=== PATIENT | female | born 1995 | race Caucasian/White ===

== ENCOUNTER 2019-04-04 16:37 | Inpatient (IN) | payer BC ==
[~2019-04-04 16:37] MED LIST: ISOVUE-370 76%-LOCM 1 ML ONE
[2019-04-04 17:22] LABS: #Eosinphils 0.1 thou/uL (0.0-0.7); #Lymphocytes 2.2 thou/uL (1.20-3.40); #Monocytes 0.9 thou/uL (0.11-0.59); #Neutrophils 8.3 thou/uL (1.40-6.50); %Basophils 0.3 % (0.0-1.0); %Eosinophils 0.6 % (0.0-10.0); %Lymphocytes 19.3 % (21.0-51.0); %Monocytes 7.8 % (0.0-10.0); Hemoglobin 14.7 g/dL (12.0-16.0); Mean Corpuscular HGB CONC 32.8 g/dL (32.0-36.0); Mean Corpuscular Hemoglobin 29.1 pg (27.0-31.0); Mean Corpuscular Volume 88.7 fL (78.0-98.0); Mean Platelet Volume 9.7 fL (7.4-10.4); Platelet Count 274 thou/uL (130-400); RBC Distribution Width 12.5 % (11.5-14.5); Red Blood Cell (RBC) Count 5.05 mill/uL (4.20-5.40); White Blood Cell (WBC) Count 11.5 thou/uL (4.8-10.8)
[2019-04-04] MEDS ORDERED: Ondansetron PF 4 MG/2 ML Vial ONE (17:30)
[2019-04-04] MEDS ORDERED: Metoclopramide HCl 10 MG/2 ML VIAL ONE (17:38)
[2019-04-04 17:40] LABS: BHCG - Serum Negative (NEGATIVE); Pregs Control Background? CLEAR/WHITE (CLR/WHITE); Pregs Control Bar Appear? YES (CONTROL BAR)
[2019-04-04 17:51] LABS: ALT (SGPT) 32 U/L (8-55); AST (SGOT) 22 U/L (5-34); Albumin 4.6 g/dL (3.5-5.0); Alkaline Phosphatase 66 U/L (40-150); Anion Gap 16 mmol/L (10-20); BUN (Urea Nitrogen) 9 mg/dL (7.0-18.7); Bilirubin, Total 0.6 mg/dL (0.2-1.2); Calc. Creatinine Clearance 0 mL/min (70-130); Calcium 10.3 mg/dL (7.8-10.44); Carbon Dioxide 26 mmol/L (22-29); Chloride 102 mmol/L (98-107); Estimated GFR-MDRD Greater than 90; Globulin 3.3 g/dL (2.4-3.5); Glucose 91 mg/dL (70-105); Lipase 7 U/L (8-78); Potassium 3.2 mmol/L (3.5-5.1); Protein, Total 7.9 g/dL (6.0-8.3); Sodium 141 mmol/L (136-145)
[2019-04-04] MEDS ORDERED: methylPREDNISolone Sod Succ 40 MG VIAL ONE ×2 (17:55→17:56)
[2019-04-04] MEDS ORDERED: Morphine 4 MG/ML VIAL ONE (18:44)
[2019-04-04 18:52] LABS: Troponin I Less than 0.010 ng/mL (< 0.028)
[2019-04-04] MEDS ORDERED: Potassium Chloride 40 MEQ in Sodium Chloride 0.9% 250 ML 250 ML IVPB SCH (19:00)
--- NOTE | 2019-04-04 19:04 | CT ---
CT ABDOMEN AND PELVIS WITH IV CONTRAST: 04/04/2019 PROVIDED CLINICAL HISTORY: Abdominal pain and nausea. FINDINGS: The visualized lung bases are free of significant opacity. The solid abdominal organs demonstrate a normal CT appearance. Changes of prior cholecystectomy are seen. No bowel dilatation, inflammatory fat stranding, free fluid, or free air apparent. The osseous structures demonstrate no concerning lytic or blastic lesions. The appendix appears normal. IMPRESSION: No evidence for an acute process. POS: BRITTNEY
[2019-04-04 21:02] VITALS: BMI 46.7
[2019-04-04] MEDS ORDERED: Ondansetron ODT 4 MG TAB SL PRN (21:21)
[2019-04-04] MEDS ORDERED: Ondansetron PF 4 MG/2 ML Vial IVP PRN (21:21)
[2019-04-04] MEDS ORDERED: Lactated Ringer's 1,000 ML IV SCH (21:30)
[2019-04-04] MEDS ORDERED: hydrALAZINE 20 MG/ML VIAL SLOW IVP PRN (22:22)
--- NOTE | 2019-04-04 22:38 | CON ---
DATE OF CONSULTATION: 04/04/2019 REASON FOR CONSULTATION: Abdominal pain, nausea and vomiting. HISTORY OF PRESENT ILLNESS: Mrs. Morales is a 24-year-old female who presents with a 5-day history of persistent epigastric pain and lower chest pain that has been increasing in severity, associated with nausea and vomiting. She has not been able to keep much fluid or foods down. The pain is described as sharp and stabbing without any radiation. She had a normal bowel movement two days ago. She denies any fever. She has had similar pain and symptoms in the past several years. I saw her in clinic one time back in October at which time her symptoms had resolved. However, by report, the patient has had recurrent abdominal issue, pain, reflux, nausea, vomiting for which she has had undergone numerous tests including EGDs, colonoscopy, CT and ultrasound in [facility] and [place]. In 2015, she had a laparoscopic cholecystectomy for suspected biliary dyskinesia. In 2016, she had an upper endoscopy in the [place] with gastric biopsy reportedly showed eosinophilic gastritis. She was only treated with PPI for her chronic reflux, which she had stopped since October. PAST MEDICAL HISTORY: 1. Status post cholecystectomy. 2. Numerous GI tests in outlying communities as above. 3. Chronic GE reflux. CURRENT MEDICATIONS: 1. Ibuprofen 200 mg up to four times a day for the last 3-4 days. 2. She was previously on pantoprazole, which she had discontinued over the last three months. ALLERGIES: BACTRIM. SOCIAL HISTORY: The patient is single. She is in clerical work. She does not smoke. Has no alcohol usage. FAMILY HISTORY: Negative for any known GI problem, liver disease or GI malignancy. REVIEW OF SYSTEMS: Ten-point review of system was otherwise negative except for what was aforementioned in the HPI. PHYSICAL EXAMINATION: VITAL SIGNS: Temperature is 98.2, blood pressure 128/72, pulse of 90. GENERAL: She is alert, sitting up in bed, appears to be very uncomfortable, but in no severe distress. HEENT: Shows anicteric sclerae. Oropharynx is clear, but moist. NECK: Supple. CV: Shows normal S1, S2. Regular rate and rhythm. CHEST: Shows breath sounds. ABDOMEN: Protuberant, but soft. No significant tenderness to deep palpation. She has no tympany. She has diffusely active bowel sounds. Organomegaly is difficult to assess secondary to size. EXTREMITIES: Shows no edema. LABORATORY DATA: WBCs 11.5, hemoglobin 14.7, platelet count 274. Electrolytes within normal range except potassium of 3.2, creatinine 0.74. Bilirubin 0.6, AST 22, ALT 32, alkaline phosphatase 66, lipase of 7. Serum test negative. CT of abdomen and pelvis with IV contrast was normal except for a prior cholecystectomy change. ASSESSMENT: 1. Recurrent episodic severe upper abdominal pain associated with nausea and vomiting. Her current episode has been ongoing for the last four days. Labs and CT imaging are unremarkable. Physical exam does not show any acute process. She does have a history of eosinophilic gastritis diagnosed in [place] on an upper endoscopy. However, her current symptoms are not typical for eosinophilic gastritis. 2. Chronic gastroesophageal reflux. 3. Status post cholecystectomy. RECOMMENDATION: 1. We will empirically start on corticosteroid, for now methylprednisolone 40 mg IV q.8h as she cannot keep medications down. 2. We will proceed with EGD tomorrow with repeat biopsy to ascertain her previous diagnosis of eosinophilic gastritis. 3. In the meantime, continue IV hydration, pain control and emetic control. Job ID: [id number]
[2019-04-04] MEDS: HYDROcodone/Acetaminophen 5/325 mg Tablet PO PRN (22:48)
[2019-04-04] MEDS: Metoclopramide HCl 10 MG TAB PO PRN (22:49)
--- NOTE | 2019-04-05 01:04 | HP ---
DATE AND TIME OF EVALUATION: 04/04/2019, 8 pm CHIEF COMPLAINT: Nausea, vomiting, and abdominal pain. HISTORY OF PRESENT ILLNESS: The patient is a 24-year-old female with past medical history significant for diagnosis of eosinophilic esophagitis, currently on no medication or treatment, GERD, and surgical history of cholecystectomy, who presented to the hospital with complaints of worsening abdominal pain and intractable nausea and vomiting, which began about a week ago. The patient states that her symptoms initially began as lower abdominal cramping which she thought was consistent with menstrual cramps. However, she had not started her menstrual cycle. A day later, she started to develop some nausea and vomiting along with some epigastric pain, which she describes as tightness with some radiation. She denies any fever or chills. The patient presented to outpatient GI clinic because of her persistent symptoms and inability to keep down anything orally, the patient was advised to go to the emergency department for admission and consideration for upper endoscopy. The patient has been followed by Dr. Osorio in the past, and he was consulted from the emergency department; he recommended a CT scan which showed no evidence for any acute process. He advised admission with initiation of IV steroids, and EGD tomorrow. The patient states that her symptoms initially began in 2016. She has seen numerous gastroenterology specialists and has had several endoscopies over the years. She was placed on Reglan by her PCP, which did help with her symptoms; however, she ran out of this medication. REVIEW OF SYSTEMS: A 12-point review of systems performed and is negative except as stated above. PAST MEDICAL HISTORY: GERD, eosinophilic esophagitis. PAST SURGICAL HISTORY: Several upper endoscopies, cholecystectomy, and tonsillectomy. SOCIAL HISTORY: The patient denies any alcohol use or drug use, the patient denies any smoking history. She lives in a [place] town of [place], which is located [place] to [place]. 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 FAMILY HISTORY: Positive for diabetes mellitus in her grandmother, positive for CAD in her mother. ALLERGIES: SULFAMETHOXAZOLE AND TRIMETHOPRIM. HOME MEDICATIONS: 1. Phenergan 25 mg tab 1 to 2 tablets p.o. q.6 hours p.r.n. 2. Hydroxyzine 25 mg p.o. t.i.d. p.r.n. anxiety. 3. Metoclopramide 10 mg tablet q.i.d. p.r.n. 4. Pantoprazole 40 mg p.o. daily. PHYSICAL EXAMINATION: VITAL SIGNS: Blood pressure 144/81, pulse is 72, temperature 98.7, O2 saturation is 98% on room air. GENERAL: The patient is a young female, who is moderately obese, resting comfortably in bed, in no acute distress. HEENT: Head is atraumatic and normocephalic. Mucous membranes are moist. NECK: Trachea is midline. No JVD. CV: S1 and S2. Regular rate and rhythm. No appreciable murmurs, rubs, or gallops. LUNGS: Regular respiratory rate and pattern. Clear to auscultation bilaterally. ABDOMEN: Positive bowel sounds. The patient has no tenderness to palpation. ABDOMEN: Obese. EXTREMITIES: No appreciable pitting edema. NEUROLOGIC: Cranial nerves II through XII are grossly intact. The patient is nonfocal. LABORATORY DATA: White blood cell count 11.5, hemoglobin 14.7, hematocrit 44.8, platelet count is 274. Sodium 141, potassium 3.2, carbon dioxide 26, anion gap 16, creatinine 0.74. AST, ALT, and alkaline phosphatase all within normal limits. Lipase negative. test is negative. ASSESSMENT: 1. Persistent nausea and vomiting along with abdominal pain in a patient with known history of eosinophilic esophagitis. 2. Elevated blood pressure reading without history of hypertension. 3. Obesity. 4. Mild hypokalemia. PLAN: Appreciate very much Dr. Osorio's recommendations. We will continue IV steroids, antiemetics, and pain control. Continue IV fluid resuscitation. We will replete the patient's potassium and recheck in the morning. The patient has had some elevated blood pressure readings here, and given her obesity, would like to rule out metabolic syndrome. I will get an A1c in the morning along with a lipid profile. The patient will be made n.p.o. after midnight in anticipation of upper endoscopy with Dr. Osorio tomorrow. Further recommendations based on findings. Job ID: [id number] [facility]
[2019-04-05] MEDS ORDERED: methylPREDNISolone Sod Succ 40 MG VIAL IVP SCH (02:00)
[2019-04-05 04:48] LABS: Hemoglobin A1c 4.9 % (4.0-6.0)
[2019-04-05 04:57] LABS: #Lymphocytes 0.9 thou/uL (1.20-3.40); #Monocytes 0.2 thou/uL (0.11-0.59); #Neutrophils 6.8 thou/uL (1.40-6.50); %Basophils 0.4 % (0.0-1.0); %Eosinophils 0.2 % (0.0-10.0); %Lymphocytes 10.8 % (21.0-51.0); %Monocytes 2.8 % (0.0-10.0); %Neutrophils 85.8 % (42.0-75.0); Hemoglobin 13.6 g/dL (12.0-16.0); Mean Corpuscular HGB CONC 33.7 g/dL (32.0-36.0); Mean Corpuscular Hemoglobin 30.9 pg (27.0-31.0); Mean Corpuscular Volume 91.8 fL (78.0-98.0); Mean Platelet Volume 9.9 fL (7.4-10.4); Platelet Count 224 thou/uL (130-400); RBC Distribution Width 12.4 % (11.5-14.5); Red Blood Cell (RBC) Count 4.41 mill/uL (4.20-5.40); White Blood Cell (WBC) Count 7.9 thou/uL (4.8-10.8)
[2019-04-05 05:04] LABS: Anion Gap 14 mmol/L (10-20); BUN (Urea Nitrogen) 6 mg/dL (7.0-18.7); Calc. Creatinine Clearance 321 mL/min (70-130); Calcium 9.4 mg/dL (7.8-10.44); Carbon Dioxide 21 mmol/L (22-29); Cardiac Risk 3.8 (Less than 4.5); Chloride 106 mmol/L (98-107); Cholesterol 125 mg/dl (< 200 Desired); Estimated GFR-MDRD Greater than 90; Glucose 103 mg/dL (70-105); HDL Cholesterol 33 mg/dL (>60 Neg Risk); LDL Cholesterol, Calculated 83 mg/dL; Potassium 4.3 mmol/L (3.5-5.1); Sodium 137 mmol/L (136-145); Triglycerides 47 mg/dL (Less than 150)
[2019-04-05] MEDS: HYDROcodone/Acetaminophen 5/325 mg Tablet PO PRN ×2 (08:16→20:56)
[2019-04-05] MEDS: Metoclopramide HCl 10 MG TAB PO PRN (08:17)
[2019-04-05] MEDS ORDERED: Morphine 2 MG/ML SYRINGE SLOW IVP PRN (09:06)
[2019-04-05] MEDS: Ondansetron PF 4 MG/2 ML Vial IVP PRN ×2 (09:39→20:56)
[2019-04-05] MEDS ORDERED: Fentanyl 100 MCG/2 ML VIAL SLOW IVP PRN (11:36)
--- NOTE | 2019-04-05 11:46 | PDOC.HOSPP ---
- Subjective Encounter Date: 04/05/19 Encounter Time: 09:30 - Objective Vital Signs & Weight: Vital Signs (12 hours) Temp Pulse Resp BP Pulse Ox 04/05/19 07:51 98.7 F 83 16 176/107 H 97 04/05/19 03:58 97.7 F 73 20 126/71 96 Weight Weight 139.389 kg I&O: 04/04/19 04/05/19 04/06/19 06:59 06:59 06:59 Intake Total 1530 Balance 1530 Result Diagrams: 04/05/19 04:02 04/05/19 04:02 ROS - Review of Systems Gastrointestinal: reports: nausea, abdominal pain - Medication Medications: Active Medications Generic Name Dose Route Start Last Admin Trade Name Freq PRN Reason Stop Dose Admin Hydrocodone Bitart/Acetaminophen 1 tab 04/04/19 22:21 04/05/19 08:16 [place] 5/325 PO 1 tab Q4H PRN Administration Moderate Pain (4-6) Metoclopramide HCl 10 mg 04/04/19 21:48 04/05/19 08:17 Reglan PO 10 mg QID PRN Administration Nausea Morphine Sulfate 2 mg 04/05/19 09:06 04/05/19 09:38 Morphine SLOW IVP 2 mg Q4H PRN Administration Breakthrough Pain Ondansetron HCl 4 mg 04/05/19 09:07 04/05/19 09:39 Zofran IVP 4 mg Q6H PRN Administration Nausea/Vomiting - Exam Eye: PERRL ENT: normocephalic atraumatic, moist mucosa Neck: supple, no JVD Heart: RRR, no murmur Respiratory: CTAB Gastrointestinal: soft, normal bowel sounds, tender to palpation Gastrointestinal - other findings: epigastric region Skin: normal turgor Neurological: CN's grossly intact Musculoskeletal: normal tone Psychiatric - other findings: crying, in some pain distress Hosp A/P (1) Nausea Code(s): R11.0 - NAUSEA Status: Acute (2) Epigastric abdominal pain Code(s): R10.13 - EPIGASTRIC PAIN Status: Acute (3) Eosinophilic esophagitis Code(s): K20.0 - EOSINOPHILIC ESOPHAGITIS Status: Chronic - Plan old records reviewed/req Will go for an EGD today IV fluids and pain meds Await recommendations from GI Will recheck labs in AM
[2019-04-05] MEDS ORDERED: Lidocaine 1% PF 5 ML VIAL ONE (13:00)
[2019-04-05] MEDS ORDERED: PROPOFOL 200 MG/20 ML VIAL ONE (13:00)
[2019-04-05] MEDS ORDERED: Fentanyl 100 MCG/2 ML VIAL ONE (13:33)
[2019-04-05] MEDS ORDERED: Promethazine HCl 25 MG/ML VIAL IM PRN (14:04)
[2019-04-05] MEDS ORDERED: Promethazine HCl 25 MG/ML VIAL SLOW IVP PRN (14:04)
[2019-04-05] MEDS ORDERED: Ondansetron HCl/PF 4 MG/2 ML Vial IVP PRN (14:04)
[2019-04-05] MEDS ORDERED: Pantoprazole 40 MG VIAL IVP SCH (14:45)
[2019-04-05] MEDS: Pantoprazole 40 MG GRANULES PACKET PO SCH (15:20)
[2019-04-05] MEDS ORDERED: Promethazine HCl 25 MG/ML VIAL IM/IV SCH (17:00)
[2019-04-05] MEDS: hydrOXYzine Pamoate 25 mg Capsule PO PRN (21:05)
[2019-04-06] MEDS: Promethazine HCl 12.5 MG in Sodium Chloride 0.9% 50 ML IVPB SCH ×2 (01:15→08:14)
[2019-04-06] MEDS: Ondansetron PF 4 MG/2 ML Vial IVP PRN ×2 (04:53→12:02)
[2019-04-06] MEDS: Fentanyl 100 MCG/2 ML VIAL SLOW IVP PRN ×4 (05:01→14:33)
[2019-04-06] MEDS ORDERED: Lorazepam 2 MG/ML VIAL SLOW IVP SCH (06:45)
[2019-04-06] MEDS: Pantoprazole 40 MG GRANULES PACKET PO SCH ×2 (08:14→09:00)
[2019-04-06 09:20] LABS: ALT (SGPT) 30 U/L (8-55); AST (SGOT) 28 U/L (5-34); Albumin 4.2 g/dL (3.5-5.0); Alkaline Phosphatase 58 U/L (40-150); Anion Gap 13 mmol/L (10-20); BUN (Urea Nitrogen) 9 mg/dL (7.0-18.7); Bilirubin, Total 0.7 mg/dL (0.2-1.2); Calc. Creatinine Clearance 271 mL/min (70-130); Carbon Dioxide 26 mmol/L (22-29); Chloride 104 mmol/L (98-107); Estimated GFR-MDRD Greater than 90; Globulin 2.9 g/dL (2.4-3.5); Glucose 85 mg/dL (70-105); Potassium 3.4 mmol/L (3.5-5.1); Protein, Total 7.1 g/dL (6.0-8.3); Sodium 140 mmol/L (136-145)
--- NOTE | 2019-04-06 10:15 | OP ---
DATE OF PROCEDURE: 04/05/2019 PROCEDURE PERFORMED: Esophagogastroduodenoscopy with biopsy. PREOPERATIVE DIAGNOSES: Intractable nausea, vomiting, and abdominal pain. POSTOPERATIVE DIAGNOSES: 1. Mild esophagitis at distal esophagus, which was more of patchy areas of mucosal erythema. No ulcerations in the esophagus. 2. 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 3. Two shallow ulcers over the gastric body with mild gastritis. 4. Normal duodenum. 5. gastric body, gastric antrum, and also esophagus. DESCRIPTION OF PROCEDURE: The patient was placed on her left lateral position and was given sedation by Anesthesia Department. A [employer]ax video gastroscope under direct vision passed down the oropharynx, past the GE junction into the stomach and subsequently into the descending duodenum. The esophageal mucosa appeared normal over the upper two-thirds. Over the distal esophagus, the patient was found to have . This is more of a patchy area. No ulcerations or any erosions. Biopsy was obtained from the distal esophagus. Upon entering the stomach, the scope was retroflexed to visualize the fundus and cardia. No lesions in the fundus or cardia. The gastric body shows mild mucosal hyperemia with some erythematous spots and two shallow ulcers. The incisura angularis, gastric antrum; no pathology. The duodenal bulb, descending duodenum; no pathology. Biopsies obtained from the descending duodenum, gastric body, gastric antrum, and also distal esophagus. The stomach decompressed and the scope removed. RECOMMENDATIONS: 1. Discontinue n.p.o. 2. Clear liquid diet. 3. Protonix 40 once a day. 4. Zofran as needed. Job ID: [id number]
--- NOTE | 2019-04-06 10:19 | PDOC.HOSPP ---
- Subjective Encounter Date: 04/06/19 Encounter Time: 10:00 Subjective: Patient reports nausea and epigastric pain is constant and then gets worse at times. Reports phenergan and fentanyl help some but pain/nausea is still there. Is unable to tolerate anything by mouth. Patient reports pain was much worse overnight, nurses report she was often found sobbing from pain. Patient also reports multiple episodes of vomiting overnight. - Objective Vital Signs & Weight: Vital Signs (12 hours) Temp Pulse Resp BP BP Pulse Ox 04/06/19 09:05 148/72 H 04/06/19 08:05 98.3 F 83 22 H 193/115 H 97 04/06/19 03:28 76 14 117/78 98 04/06/19 00:26 73 14 139/68 Weight Admit Weight 139.389 kg Weight 139.389 kg I&O: 04/05/19 04/06/19 04/07/19 06:59 06:59 06:59 Intake Total 1530 1080 Output Total 1600 Balance 1530 -520 Result Diagrams: 04/05/19 04:02 04/06/19 08:40 ROS - Review of Systems Gastrointestinal: reports: nausea, vomitting, abdominal pain (PO intolerance) - Medication Medications: Active Medications Generic Name Dose Route Start Last Admin Trade Name Freq PRN Reason Stop Dose Admin Hydrocodone Bitart/Acetaminophen 1 tab 04/04/19 22:21 04/05/19 20:56 [place] 5/325 PO 1 tab Q4H PRN Administration Moderate Pain (4-6) Fentanyl 25 mcg 04/05/19 16:00 04/06/19 10:02 Sublimaze SLOW IVP 25 mcg Q2H PRN Administration Moderate to Severe Pain (6-10) Hydroxyzine Pamoate 25 mg 04/04/19 21:48 04/05/19 21:05 Vistaril PO 25 mg TID PRN Administration Anxiety Hyoscyamine Sulfate 0.125 mg 04/05/19 17:00 04/06/19 08:14 Levsin PO 0.125 mg QID TIMOTHY Administration Promethazine HCl 12.5 mg/ 50.5 mls @ 202 mls/hr 04/06/19 01:00 04/06/19 08:14 Sodium Chloride IVPB 50.5 mls 0100,0900,1700 TIMOTHY Administration Ondansetron HCl 4 mg 04/05/19 09:07 04/06/19 04:53 Zofran IVP 4 mg Q6H PRN Administration Nausea/Vomiting Pantoprazole Sodium 40 mg 04/05/19 09:00 04/06/19 08:14 Protonix PO 40 mg DAILY TIMOTHY Administration Sodium Chloride 10 ml 04/06/19 09:00 04/06/19 08:14 Flush - Normal Saline IVF 10 ml Q12HR TIMOTHY Administration Sodium Chloride 10 ml 04/06/19 06:35 04/06/19 06:41 Flush - Normal Saline IVF 10 ml PRN PRN Administration Saline Flush - Exam ill appearing Eye: PERRL ENT: dry oral mucosa Neck: supple Heart: RRR Respiratory: CTAB Gastrointestinal: tender to palpation Gastrointestinal - other findings: TTP epigastric region, hyperactive bowel sounds Extremities: no edema Skin: normal turgor Neurological: CN's grossly intact Musculoskeletal: normal tone Psychiatric: A&O x 3, flat affect Hosp A/P (1) Nausea Code(s): R11.0 - NAUSEA Status: Acute (2) Epigastric abdominal pain Code(s): R10.13 - EPIGASTRIC PAIN Status: Acute (3) Eosinophilic esophagitis Code(s): K20.0 - EOSINOPHILIC ESOPHAGITIS Status: Chronic (4) Hypokalemia Code(s): E87.6 - HYPOKALEMIA Status: Acute - Plan old records reviewed/req IV fluids with potassium and pain meds, nausea meds Await recommendations from GI Will recheck labs in AM Advance diet as tolerated, per patient, utility pipe layer told her yesterday that if she was unable to tolerate PO, they would eventually recommend TPN
[2019-04-06] MEDS: Potassium Chloride 40 MEQ in Sodium Chloride 0.45% 1,000 ML IV SCH (10:55)
[2019-04-06] MEDS: hydrOXYzine Pamoate 25 mg Capsule PO PRN ×2 (14:34→23:31)
[2019-04-06 14:38] LABS: Bilirubin Negative (Negative); Blood, Urine 3+ (Negative); Clarity Turbid (Clear); Glucose, Urine (Dipstick) Normal (Negative); Leukocyte 25 Leu/uL (Negative); Nitrite Negative (Negative); Protein, Urine (Dipstick) 20 mg/dL (Neg-Trace); RBC/HPF Greater than 50 HPF (0-3)
[2019-04-06 14:43] LABS: Bacteria/HPF Rare-Few HPF (None Seen)
[2019-04-06 14:45] LABS: Urine Culture Reflex No No
[2019-04-06 14:46] LABS: Amphetamine Not Detected (NotDetected); Barbiturates Screen Not Detected (NotDetected); Benzodiazepine Screen Detected (NotDetected); Cocaine Metabolite Screen Not Detected (NotDetected); Medtox Control Line Valid? VALID (VALID); Medtox Reader # READER 4; Methadone Not Detected (NotDetected); Methamphetamine Not Detected (NotDetected); Opiate Screen Not Detected (NotDetected); Oxycodone Screen Not Detected (NotDetected); Phencyclidine (PCP) Not Detected (NotDetected); THC/Cannabinoid Screen Detected (NotDetected); Tricyclic Screen Not Detected (NotDetected)
[2019-04-06] MEDS: Ondansetron PF 4 MG/2 ML Vial IVP SCH ×2 (16:59→17:22)
[2019-04-06] MEDS: Dronabinol 2.5 MG CAP PO SCH (16:59)
--- NOTE | 2019-04-06 17:07 | PRG ---
DATE OF SERVICE: 04/06/2019 SUBJECTIVE: The patient continues to have persistent nausea with dry heaves or vomiting. She cannot hold down clear liquids. She denies having any headaches. She reports having persistent high epigastric to chest pain. Promethazine has not been beneficial. OBJECTIVE: VITAL SIGNS: Temperature is 98.3, blood pressure is 180/106, pulse of 78. GENERAL: She is alert, sitting up, in no apparent distress. HEENT: Eyes exam anicteric sclerae. Oropharynx is clear and moist. NECK: Supple. CV: Normal S1, S2. Regular rate and rhythm. CHEST: Shows a breath sound. ABDOMEN: Protuberant, soft. No distention. No tympany. No significant tenderness elicited. EXTREMITIES: No edema. LABORATORY DATA: Electrolytes within normal range. Creatinine is 0.71, BUN of 9. LFTs are normal. Gastric biopsy from yesterday came back normal, specifically no evidence of eosinophilic gastritis. ASSESSMENT: Recurrent severe epigastric pain associated with persistent nausea, vomiting. In talking with the patient, she has had these episodes once or twice a year lasting up to 2 weeks at a time over the last 3 years. She has had multiple evaluations at outlying facilities including cholecystectomy. Her EGD yesterday did not show anything significant to say account for symptoms with biopsy showing normal gastric tissue without any evidence of eosinophilic gastritis as she was told to have before. I suspect she may have cyclical vomiting syndrome. Thus far, CT, EGD, biopsy, and labs are all unremarkable. RECOMMENDATIONS: 1. We will discontinue promethazine. 2. Minimize narcotic pain medication, we will discuss with the patient. 3. Dronabinol 5 mg p.o. b.i.d. 4. Imitrex 6 mg subcu q.4 hours x2 doses, may repeat tomorrow. 5. Continue IV hydration. NG tube is not needed at this point. Job ID: [id number]
[2019-04-06] MEDS ORDERED: SUMAtriptan Succinate 6 MG/0.5 ML VIAL SC SCH ×3 (18:00→23:59)
[2019-04-06] MEDS ORDERED: Pantoprazole 40 MG GRANULES PACKET PO SCH (23:00)
[2019-04-06] MEDS: HYDROcodone/Acetaminophen 5/325 mg Tablet PO PRN (23:32)
[2019-04-07] MEDS: Ondansetron PF 4 MG/2 ML Vial IVP SCH ×5 (00:22→20:28)
[2019-04-07] MEDS: Potassium Chloride 40 MEQ in Sodium Chloride 0.45% 1,000 ML IV SCH ×3 (00:31→16:42)
[2019-04-07] MEDS: Fentanyl 100 MCG/2 ML VIAL SLOW IVP PRN ×2 (03:39→08:44)
[2019-04-07 05:08] LABS: ALT (SGPT) 36 U/L (8-55); AST (SGOT) 23 U/L (5-34); Albumin 4.3 g/dL (3.5-5.0); Alkaline Phosphatase 62 U/L (40-150); Anion Gap 15 mmol/L (10-20); BUN (Urea Nitrogen) 8 mg/dL (7.0-18.7); Bilirubin, Total 0.9 mg/dL (0.2-1.2); Calc. Creatinine Clearance 287 mL/min (70-130); Calcium 9.5 mg/dL (7.8-10.44); Carbon Dioxide 22 mmol/L (22-29); Chloride 102 mmol/L (98-107); Estimated GFR-MDRD Greater than 90; Glucose 81 mg/dL (70-105); Potassium 3.7 mmol/L (3.5-5.1); Protein, Total 7.3 g/dL (6.0-8.3); Sodium 135 mmol/L (136-145)
[2019-04-07] MEDS: Dronabinol 2.5 MG CAP PO SCH (09:09)
[2019-04-07] MEDS: Pantoprazole 40 MG GRANULES PACKET PO SCH (09:11)
--- NOTE | 2019-04-07 11:59 | PDOC.HOSPP ---
- Subjective Encounter Date: 04/07/19 Encounter Time: 07:15 Subjective: pt reports that once she start eating, she feels nausea and vomiting, unable to hold down. - Objective Vital Signs & Weight: Vital Signs (12 hours) Temp Pulse Resp BP BP Pulse Ox 04/07/19 11:34 98.8 F 91 20 142/88 H 98 04/07/19 08:00 97 04/07/19 07:20 98.2 F 80 20 170/114 H 97 04/07/19 04:28 144/88 H Weight Admit Weight 307 lb 4.8 oz Weight 307 lb 4.8 oz I&O: 04/06/19 04/07/19 04/08/19 06:59 06:59 06:59 Intake Total 1080 1390 556 Output Total 1600 1400 Balance -520 -10 556 Result Diagrams: 04/05/19 04:02 04/07/19 04:34 ROS - Review of Systems Constitutional: denies: fever, chills, sweats, weakness, malaise, other Eyes: denies: pain, vision change, conjunctivae inflammation, eyelid inflammation, redness, other ENT: denies: ear pain, ear discharge, nose pain, nose discharge, nose congestion , mouth pain, mouth swelling, throat pain, throat swelling, other Respiratory: denies: cough, dry, shortness of breath, hemoptysis, SOB with excertion, pleuritic pain, sputum, wheezing, other Cardiovascular: denies: chest pain, palpitations, orthopnea, paroxysmal noc. dyspnea, edema, light headedness, other Gastrointestinal: reports: nausea, vomitting. denies: abdominal pain, diarrhea , constipation, melena, hematochezia, other Genitourinary: denies: dysuria, frequency, incontinence, hematuria, retention, other Musculoskeletal: denies: neck pain, shoulder pain, arm pain, back pain, hand pain, leg pain, foot pain, other Skin: denies: rash, lesions, jules, bruising, other - Medication Medications: Active Medications Generic Name Dose Route Start Last Admin Trade Name Freq PRN Reason Stop Dose Admin Hydrocodone Bitart/Acetaminophen 1 tab 04/04/19 22:21 04/06/19 23:32 [place] 5/325 PO 1 tab Q4H PRN Administration Moderate Pain (4-6) Dronabinol 5 mg 04/06/19 16:30 04/07/19 09:09 Marinol PO 5 mg BID-AC TIMOTHY Administration Fentanyl 25 mcg 04/05/19 16:00 04/07/19 08:44 Sublimaze SLOW IVP 25 mcg Q2H PRN Administration Moderate to Severe Pain (6-10) Hydralazine HCl 10 mg 04/04/19 22:22 04/06/19 15:51 Apresoline SLOW IVP 10 mg Q4H PRN Administration SBP > 180 and HR < 70 Hydroxyzine Pamoate 25 mg 04/04/19 21:48 04/06/19 23:31 Vistaril PO 25 mg TID PRN Administration Anxiety Hyoscyamine Sulfate 0.125 mg 04/05/19 17:00 04/07/19 09:09 Levsin PO 0.125 mg QID TIMOTHY Administration Potassium Chloride 40 meq/ 1,020 mls @ 100 mls/hr 04/06/19 10:00 04/07/19 09: 10 Sodium Chloride IV Not Given .[id number] TIMOTHY Ondansetron HCl 4 mg 04/06/19 16:15 04/07/19 11:36 Zofran IVP 04/09/19 23:59 4 mg Q6H TIMOTHY Administration Pantoprazole Sodium 40 mg 04/05/19 09:00 04/07/19 09:11 Protonix PO Not Given DAILY TIMOTHY Sodium Chloride 10 ml 04/06/19 09:00 04/07/19 09:11 Flush - Normal Saline IVF Not Given Q12HR TIMOTHY Sodium Chloride 10 ml 04/06/19 06:35 04/06/19 06:41 Flush - Normal Saline IVF 10 ml PRN PRN Administration Saline Flush - Exam NAD, awake alert Eye: PERRL, anicteric sclera ENT: normocephalic atraumatic, no oropharyngeal lesions Neck: supple, symmetric, no JVD Heart: RRR, no murmur, no gallops Respiratory: CTAB, no wheezes, no rales Gastrointestinal: soft, non-tender, non-distended, normal bowel sounds Extremities: no cyanosis, no clubbing, no edema Skin: normal turgor, no lesions, no rashes Neurological: CN's grossly intact, normal sensation to touch, no focal deficits Musculoskeletal: normal tone, normal strength, no muscle wasting Psychiatric: normal affect, normal behavior, A&O x 3 Hosp A/P (1) Epigastric abdominal pain Code(s): R10.13 - EPIGASTRIC PAIN Status: Acute (2) Gastritis Code(s): K29.70 - GASTRITIS, UNSPECIFIED, WITHOUT BLEEDING Status: Acute (3) Hypokalemia Code(s): E87.6 - HYPOKALEMIA Status: Acute (4) Nausea Code(s): R11.0 - NAUSEA Status: Acute (5) Eosinophilic esophagitis Code(s): K20.0 - EOSINOPHILIC ESOPHAGITIS Status: Chronic (6) Morbid obesity with BMI of 45.0-49.9, adult Code(s): E66.01 - MORBID (SEVERE) OBESITY DUE TO EXCESS CALORIES; Z68.42 - BODY MASS INDEX (BMI) 45.0-49.9, ADULT Status: Chronic - Plan old records reviewed/req continue protonix symptomatic treatment once tolerate diet, will consider DC medication reviewed as above symptomatic treatment
[2019-04-07] MEDS: HYDROcodone/Acetaminophen 5/325 mg Tablet PO PRN ×2 (12:23→17:49)
--- NOTE | 2019-04-07 19:53 | PRG ---
DATE OF SERVICE: 04/07/2019 SUBJECTIVE: Ms. Morales has continued to have vomiting with clear liquid diet intake today. Some soreness in her epigastric region from the vomiting. OBJECTIVE: VITAL SIGNS: Temperature 98.3, pulse 72, blood pressure 166/93. Weight 307 pounds. GENERAL: She is in no acute distress. Alert and oriented x3. LUNGS: Clear to auscultation bilaterally. HEART: Regular rate and rhythm without murmur. ABDOMEN: Soft and minimal tenderness in the epigastric region without guarding. Bowel sounds are present. EXTREMITIES: No lower extremity edema. IMPRESSION: Recurrent episodes of nausea and vomiting. They usually last for 2 or 3 weeks and then resolve. She has had numerous endoscopies and imaging studies with previous episodes. EGD on 04/05/2019 was unremarkable. Duodenal and gastric and esophageal biopsies were unremarkable. She does not have the eosinophilic gastritis. She most likely has cannabis hyperemesis syndrome. Her urine tox screen is positive for cannabis; however, she states that she only smoked marijuana one time in her life, which was just before her presentation to the hospital. If this is the case, then she more likely then would have cyclical vomiting syndrome as her symptoms completely returned to normal between these episodes. She has previously improved with Reglan in the past temporarily. Given that these episodes typically only lasts for 3 weeks. Periodic use of Reglan during these episodes can be given. Dr. Osorio did give her 2 doses of Imitrex yesterday, without improvement in her symptoms. RECOMMENDATIONS: 1. Proton pump inhibitor. 2. IV antiemetics as needed. 3. Discontinue all opioids. 4. Metoclopramide 10 mg 4 times daily IV. This will just be short-term during the this episode. 5. We will stop the dronabinol as the urine tox screen has come back positive, which was obtained prior to her first dose of dronabinol. 6. I would hold enteric feeding for a day or two as her symptoms have previously turned around as they run their usual course. Job ID: [id number]
[2019-04-07] MEDS: Acetaminophen 325 MG TAB PO PRN (20:27)
[2019-04-07] MEDS: Metoclopramide HCl 10 MG/2 ML VIAL IVP SCH (20:28)
[2019-04-08] MEDS: Potassium Chloride 40 MEQ in Sodium Chloride 0.45% 1,000 ML IV SCH ×3 (03:25→23:56)
[2019-04-08] MEDS: Ondansetron PF 4 MG/2 ML Vial IVP SCH ×4 (03:26→20:18)
[2019-04-08] MEDS: Metoclopramide HCl 10 MG/2 ML VIAL IVP SCH ×3 (04:42→20:18)
[2019-04-08] MEDS: hydrOXYzine Pamoate 25 mg Capsule PO PRN ×2 (04:42→20:17)
[2019-04-08] MEDS: Promethazine 25 MG TAB PO PRN ×2 (06:50→17:35)
[2019-04-08] MEDS: Acetaminophen 325 MG TAB PO PRN ×2 (06:55→20:17)
[2019-04-08] MEDS ORDERED: Lorazepam 2 MG/ML VIAL SLOW IVP SCH (07:00)
[2019-04-08] MEDS ORDERED: Senokot S 8.6-50 MG TAB PO PRN (08:07)
[2019-04-08] MEDS ORDERED: Sodium Chloride 0.65% Nasal 44 ML BOT EA NARE PRN (08:07)
[2019-04-08] MEDS ORDERED: Cepastat Lozenges 1 LOZ PO PRN (08:07)
[2019-04-08] MEDS ORDERED: Diabetic Tussin 200 MG/10 ML UDCUP PO PRN (08:07)
[2019-04-08] MEDS: Pantoprazole 40 MG VIAL IVP SCH (08:39)
--- NOTE | 2019-04-08 11:38 | PDOC.HOSPP ---
- Subjective Encounter Date: 04/08/19 Encounter Time: 09:00 Subjective: pt has nausea and epigastric abdominal pain - Objective Vital Signs & Weight: Vital Signs (12 hours) Temp Pulse Resp BP Pulse Ox 04/08/19 08:00 98 04/08/19 07:20 98.5 F 92 18 154/94 H 98 Weight Admit Weight 307 lb 4.8 oz Weight 307 lb 4.8 oz I&O: 04/07/19 04/08/19 04/09/19 06:59 06:59 06:59 Intake Total 1390 1676 120 Output Total 1400 Balance -10 1676 120 Result Diagrams: 04/05/19 04:02 04/07/19 04:34 ROS - Review of Systems Constitutional: denies: fever, chills, sweats, weakness, malaise, other Eyes: denies: pain, vision change, conjunctivae inflammation, eyelid inflammation, redness, other ENT: denies: ear pain, ear discharge, nose pain, nose discharge, nose congestion , mouth pain, mouth swelling, throat pain, throat swelling, other Respiratory: denies: cough, dry, shortness of breath, hemoptysis, SOB with excertion, pleuritic pain, sputum, wheezing, other Cardiovascular: denies: chest pain, palpitations, orthopnea, paroxysmal noc. dyspnea, edema, light headedness, other Gastrointestinal: reports: nausea, abdominal pain. denies: vomitting, diarrhea , constipation, melena, hematochezia, other Genitourinary: denies: dysuria, frequency, incontinence, hematuria, retention, other Musculoskeletal: denies: neck pain, shoulder pain, arm pain, back pain, hand pain, leg pain, foot pain, other Skin: denies: rash, lesions, jules, bruising, other - Medication Medications: Active Medications Generic Name Dose Route Start Last Admin Trade Name Freq PRN Reason Stop Dose Admin Acetaminophen 650 mg 04/04/19 21:45 04/08/19 06:55 Tylenol PO 650 mg Q4H PRN Administration Headache/Fever/Mild Pain (1-3) Hydralazine HCl 10 mg 04/04/19 22:22 04/06/19 15:51 Apresoline SLOW IVP 10 mg Q4H PRN Administration SBP > 180 and HR < 70 Hydroxyzine Pamoate 25 mg 04/04/19 21:48 04/08/19 04:42 Vistaril PO 25 mg TID PRN Administration Anxiety Hyoscyamine Sulfate 0.125 mg 04/05/19 17:00 04/08/19 08:39 Levsin PO 0.125 mg QID TIMOTHY Administration Potassium Chloride 40 meq/ 1,020 mls @ 100 mls/hr 04/06/19 10:00 04/08/19 03: 25 Sodium Chloride IV 1,020 mls .[id number] TIMOTHY Administration Metoclopramide HCl 10 mg 04/07/19 22:00 04/08/19 04:42 Reglan IVP 10 mg Q8HR TIMOTHY Administration Ondansetron HCl 4 mg 04/06/19 16:15 04/08/19 10:08 Zofran IVP 04/09/19 23:59 4 mg Q6H TIMOTHY Administration Pantoprazole Sodium 40 mg 04/08/19 09:00 04/08/19 08:39 Protonix IVP 40 mg DAILY TIMOTHY Administration Promethazine HCl 25 mg 04/07/19 19:38 04/08/19 06:50 Phenergan PO 25 mg Q6H PRN Administration Nausea/Vomiting Sodium Chloride 10 ml 04/06/19 09:00 04/08/19 08:39 Flush - Normal Saline IVF 10 ml Q12HR TIMOTHY Administration Sodium Chloride 10 ml 04/06/19 06:35 04/06/19 06:41 Flush - Normal Saline IVF 10 ml PRN PRN Administration Saline Flush - Exam NAD, awake alert Eye: PERRL, anicteric sclera ENT: normocephalic atraumatic, no oropharyngeal lesions Neck: supple, symmetric, no JVD, no thyromegaly Heart: RRR, no murmur, no gallops, no rubs Respiratory: CTAB, no wheezes, no rales Gastrointestinal: soft, non-distended, normal bowel sounds, no hepatomegaly, no splenomegaly, no guarding, no rigidity Gastrointestinal - other findings: subjective epigastric discomfort Extremities: no cyanosis, no clubbing, no edema Skin: normal turgor, no lesions, no rashes Neurological: CN's grossly intact, normal sensation to touch, no focal deficits Musculoskeletal: normal tone, normal strength Psychiatric: normal affect, normal behavior, A&O x 3 Hosp A/P (1) Epigastric abdominal pain Code(s): R10.13 - EPIGASTRIC PAIN Status: Acute (2) Gastritis Code(s): K29.70 - GASTRITIS, UNSPECIFIED, WITHOUT BLEEDING Status: Acute (3) Hypokalemia Code(s): E87.6 - HYPOKALEMIA Status: Acute (4) Nausea Code(s): R11.0 - NAUSEA Status: Acute (5) Eosinophilic esophagitis Code(s): K20.0 - EOSINOPHILIC ESOPHAGITIS Status: Chronic (6) Morbid obesity with BMI of 45.0-49.9, adult Code(s): E66.01 - MORBID (SEVERE) OBESITY DUE TO EXCESS CALORIES; Z68.42 - BODY MASS INDEX (BMI) 45.0-49.9, ADULT Status: Chronic - Plan old records reviewed/req continue protonix symptomatic treatment once tolerate diet, will consider DC medication reviewed as above symptomatic treatment
--- NOTE | 2019-04-08 11:39 | PRG ---
DATE OF SERVICE: 04/08/2019 SUBJECTIVE: Ms. Morales again had nausea and vomiting this morning. She has no abdominal pain. OBJECTIVE: VITAL SIGNS: Temperature 98.5, pulse 92, and blood pressure 154/94. GENERAL: She is in no acute distress. Alert and oriented x3. LUNGS: Clear to auscultation bilaterally. HEART: Regular rate and rhythm without murmur. ABDOMEN: Soft, nontender, nondistended. Bowel sounds are present. EXTREMITIES: No lower extremity edema. IMPRESSION: Recurrent intermittent episodes of nausea and vomiting that last for 2 or 3 weeks at a time every few months. This could be cyclical vomiting syndrome versus cannabis hyperemesis syndrome. She was positive for cannabinoids on her urine tox screen. She states that the only time she ever smoked marijuana was one time just before admission that all her symptoms started prior to cannabis use. She does have cyclical vomiting syndrome and she did receive Imitrex without significant improvement so far. This should also run its course as it had in the past and she goes back to having no problems between the episodes. Treatment is supportive with proton pump inhibitors and antiemetics and we can give metoclopramide on a short-term basis during these episodes. RECOMMENDATIONS: 1. PPI IV. 2. All opioids have been discontinued. 3. Metoclopramide IV. 4. IV antiemetics as needed. 5. Again, this should run its course over the next several days and I would hold off further enteric feeding for now. I would expect that if we do Dobhoff tube feeds or gastric feeds at this time, she will likely vomit those up as well. Hopefully, this will resolve over the next day or two before we have to start further enteral or IV nutrition. 6. Ideally, we would obtain a gastric emptying scan. At baseline, however, this should be done as an outpatient, but not when she is an acute flare of the nausea and vomiting episode. Job ID: [id number]
[2019-04-08] MEDS: Calcium Carbonate 500 MG ChewTAB PO PRN ×2 (18:42→20:18)
[2019-04-09] MEDS: Potassium Chloride 40 MEQ in Sodium Chloride 0.45% 1,000 ML IV SCH (05:34)
[2019-04-09] MEDS: Ondansetron PF 4 MG/2 ML Vial IVP SCH ×4 (05:35→21:26)
[2019-04-09] MEDS: Metoclopramide HCl 10 MG/2 ML VIAL IVP SCH ×3 (05:37→21:26)
[2019-04-09] MEDS: Pantoprazole 40 MG VIAL IVP SCH (08:12)
--- NOTE | 2019-04-09 14:32 | PRG ---
DATE OF SERVICE: 04/09/2019 SUBJECTIVE: Ms. Morales vomited some broth this morning. She is keeping down some mashed potatoes so far this afternoon. She has no abdominal pain. OBJECTIVE: VITAL SIGNS: Temperature 98.6, pulse 91, blood pressure 151/94. GENERAL: She is in no acute distress. Alert and oriented x3. LUNGS: Clear to auscultation bilaterally. HEART: Regular rate and rhythm without murmur. ABDOMEN: Minimal tenderness in the upper epigastric region. EXTREMITIES: No lower extremity edema. LABORATORY DATA: White blood cell count is 7.9, hemoglobin 13.6, platelets 224. Creatinine 0.67. IMPRESSION: Recurrent prolonged episodes of nausea and vomiting with which she goes back to normal in between these episodes. This likely is secondary to cannabis hyperemesis syndrome versus cyclical vomiting syndrome. RECOMMENDATIONS: The treatment plan at this point is still supportive with IV fluids, PPI, and avoidance of opioids, Reglan for now, antiemetics as needed. We should see this run its course over the next few days given her previous history. In the future, it would be better to obtain a gastric emptying scan when she is closer to her baseline functional status either after she is adequately tolerating solid intake or as an outpatient. Job ID: [id number]
--- NOTE | 2019-04-09 17:41 | PDOC.HOSPP ---
- Subjective Encounter Date: 04/09/19 Encounter Time: 10:15 Subjective: pt up in bed is trying to eat some potatoes - Objective Vital Signs & Weight: Vital Signs (12 hours) Temp Pulse Resp BP Pulse Ox 04/09/19 08:00 96 04/09/19 07:06 98.6 F 91 18 151/94 H 96 Weight Admit Weight 307 lb 4.8 oz Weight 307 lb 4.8 oz I&O: 04/08/19 04/09/19 04/10/19 06:59 06:59 06:59 Intake Total 1676 976 600 Balance 1676 976 600 Result Diagrams: 04/05/19 04:02 04/07/19 04:34 ROS - Review of Systems Respiratory: denies: cough, dry, shortness of breath, hemoptysis, SOB with excertion, pleuritic pain, sputum, wheezing, other Cardiovascular: denies: chest pain, palpitations, orthopnea, paroxysmal noc. dyspnea, edema, light headedness, other - Medication Medications: Active Medications Generic Name Dose Route Start Last Admin Trade Name Freq PRN Reason Stop Dose Admin Acetaminophen 650 mg 04/04/19 21:45 04/08/19 20:17 Tylenol PO 650 mg Q4H PRN Administration Headache/Fever/Mild Pain (1-3) Calcium Carbonate 500 mg 04/08/19 18:25 04/08/19 20:18 Tums PO 500 mg PRN PRN Administration BURNING INDIGESTION Hydralazine HCl 10 mg 04/04/19 22:22 04/06/19 15:51 Apresoline SLOW IVP 10 mg Q4H PRN Administration SBP > 180 and HR < 70 Hydroxyzine Pamoate 25 mg 04/04/19 21:48 04/08/19 20:17 Vistaril PO 25 mg TID PRN Administration Anxiety Hyoscyamine Sulfate 0.125 mg 04/05/19 17:00 04/09/19 16:27 Levsin PO 0.125 mg QID TIMOTHY Administration Metoclopramide HCl 10 mg 04/07/19 22:00 04/09/19 14:07 Reglan IVP 10 mg Q8HR TIMOTHY Administration Ondansetron HCl 4 mg 04/06/19 16:15 04/09/19 16:27 Zofran IVP 08/18/19 23:59 4 mg Q6H TIMOTHY Administration Pantoprazole Sodium 40 mg 04/08/19 09:00 04/09/19 08:12 Protonix IVP 40 mg DAILY TIMOTHY Administration Promethazine HCl 25 mg 04/07/19 19:38 04/08/19 17:35 Phenergan PO 25 mg Q6H PRN Administration Nausea/Vomiting Sodium Chloride 10 ml 04/06/19 09:00 04/09/19 08:15 Flush - Normal Saline IVF Not Given Q12HR TIMOTHY Sodium Chloride 10 ml 04/06/19 06:35 04/06/19 06:41 Flush - Normal Saline IVF 10 ml PRN PRN Administration Saline Flush - Exam ENT: negative: normocephalic atraumatic, no oropharyngeal lesions, moist mucosa , dry oral mucosa Neck: negative: supple, symmetric, no JVD, no thyromegaly, no lymphadenopathy, no carotid bruit, JVD Heart: negative: RRR, no murmur, no gallops, no rubs, normal peripheral pulses, irregular, diminshed peripheral pulses, murmur present, II/IV, III/IV Hosp A/P (1) Epigastric abdominal pain Code(s): R10.13 - EPIGASTRIC PAIN Status: Acute (2) Gastritis Code(s): K29.70 - GASTRITIS, UNSPECIFIED, WITHOUT BLEEDING Status: Acute (3) Nausea Code(s): R11.0 - NAUSEA Status: Acute (4) Morbid obesity with BMI of 45.0-49.9, adult Code(s): E66.01 - MORBID (SEVERE) OBESITY DUE TO EXCESS CALORIES; Z68.42 - BODY MASS INDEX (BMI) 45.0-49.9, ADULT Status: Chronic - Plan will advance diet as tolerated. will continue ppi for now. discharge once pt is able to tolerate orals. No narcotics.
[2019-04-09] MEDS: hydrOXYzine Pamoate 25 mg Capsule PO PRN (21:26)
[2019-04-09] MEDS: Acetaminophen 325 MG TAB PO PRN (21:26)
[2019-04-10] MEDS: Promethazine 25 MG TAB PO PRN ×2 (06:10→13:17)
[2019-04-10] MEDS: Metoclopramide HCl 10 MG/2 ML VIAL IVP SCH ×3 (06:11→21:33)
[2019-04-10] MEDS: Pantoprazole 40 MG VIAL IVP SCH (08:34)
[2019-04-10] MEDS: Acetaminophen 325 MG TAB PO PRN (08:34)
[2019-04-10] MEDS: hydrOXYzine Pamoate 25 mg Capsule PO PRN (13:17)
--- NOTE | 2019-04-10 14:28 | PRG ---
DATE OF SERVICE: 04/10/2019 SUBJECTIVE: Ms. Morales vomited some liquids today. She has had no abdominal pain. PHYSICAL EXAMINATION: VITAL SIGNS: Temperature 98.4, pulse 89, and blood pressure 135/94. GENERAL: She is in no acute distress. She is alert and oriented x3. LUNGS: Clear to auscultation bilaterally. HEART: Regular rate and rhythm without murmur. ABDOMEN: Soft, nontender, nondistended. Bowel sounds are present. EXTREMITIES: No lower extremity edema. IMPRESSION: 1. Recurrent episodes of nausea and vomiting. I suspect this is most likely cannabis hyperemesis syndrome, however, cyclical vomiting syndrome as possible as well. Either way, this should run its usual course as these episodes of typically run over a 2- to 3-week period previously. 2. Anxiety, depression. She is frequently tearful, and I think this is playing an important role in her symptoms. RECOMMENDATIONS: 1. Try to advance to a low fiber diet. 2. Continue current treatment with metoclopramide IV, pantoprazole IV, promethazine p.o. as needed. Some additional treatment for the anxiety/depression might also be helpful. Consideration of a short term benzodiazepine here in the hospital or amitriptyline could be considered. 3. Eventually, outpatient gastric emptying scan should be done. During the acute vomiting phase, gastric emptying scan would not be very helpful. Job ID: [id number]
[2019-04-11] MEDS: Metoclopramide HCl 10 MG/2 ML VIAL IVP SCH (05:40)
[2019-04-11 08:00] VITALS: BP 113/78; TEMP 97.8
[2019-04-11] MEDS ORDERED: Amitriptyline HCl 25 MG TAB PO SCH (09:00)
[2019-04-11] MEDS: Pantoprazole 40 MG VIAL IVP SCH (09:23)
--- NOTE | 2019-04-11 09:33 | PDOC.HOSPP ---
- Subjective Encounter Date: 04/10/19 Encounter Time: 10:30 Subjective: pt up in bed is having hunger pain - Objective Vital Signs & Weight: Vital Signs (12 hours) Temp Pulse Resp BP Pulse Ox 04/11/19 08:00 97.8 F 100 20 113/78 98 Weight Admit Weight 307 lb 4.8 oz Weight 307 lb 4.8 oz I&O: 04/10/19 04/11/19 04/12/19 06:59 06:59 06:59 Intake Total 920 350 Balance 920 350 Result Diagrams: 04/05/19 04:02 04/07/19 04:34 ROS - Review of Systems Respiratory: denies: cough, dry, shortness of breath, hemoptysis, SOB with excertion, pleuritic pain, sputum, wheezing, other Cardiovascular: denies: chest pain, palpitations, orthopnea, paroxysmal noc. dyspnea, edema, light headedness, other Gastrointestinal: denies: nausea, vomitting, abdominal pain, diarrhea, constipation, melena, hematochezia, other - Medication Medications: Active Medications Generic Name Dose Route Start Last Admin Trade Name Freq PRN Reason Stop Dose Admin Acetaminophen 650 mg 04/04/19 21:45 04/10/19 08:34 Tylenol PO 650 mg Q4H PRN Administration Headache/Fever/Mild Pain (1-3) Calcium Carbonate 500 mg 04/08/19 18:25 04/08/19 20:18 Tums PO 500 mg PRN PRN Administration BURNING INDIGESTION Hydralazine HCl 10 mg 04/04/19 22:22 04/06/19 15:51 Apresoline SLOW IVP 10 mg Q4H PRN Administration SBP > 180 and HR < 70 Hydroxyzine Pamoate 25 mg 04/04/19 21:48 04/10/19 13:17 Vistaril PO 25 mg TID PRN Administration Anxiety Metoclopramide HCl 10 mg 04/07/19 22:00 04/11/19 05:40 Reglan IVP 10 mg Q8HR TIMOTHY Administration Pantoprazole Sodium 40 mg 04/08/19 09:00 04/10/19 08:34 Protonix IVP 40 mg DAILY TIMOTHY Administration Promethazine HCl 25 mg 04/07/19 19:38 04/10/19 13:17 Phenergan PO 25 mg Q6H PRN Administration Nausea/Vomiting Sodium Chloride 10 ml 04/06/19 09:00 04/10/19 21:33 Flush - Normal Saline IVF 10 ml Q12HR TIMOTHY Administration Sodium Chloride 10 ml 04/06/19 06:35 04/06/19 06:41 Flush - Normal Saline IVF 10 ml PRN PRN Administration Saline Flush - Exam Neck: negative: supple, symmetric, no JVD, no thyromegaly, no lymphadenopathy, no carotid bruit, JVD Heart: negative: RRR, no murmur, no gallops, no rubs, normal peripheral pulses, irregular, diminshed peripheral pulses, murmur present, II/IV, III/IV Respiratory: negative: CTAB, no wheezes, no rales, no ronchi, normal chest expansion, no tachypnea, normal percussion, rales, rhonchi, tachypneic, wheezes Hosp A/P (1) Epigastric abdominal pain Code(s): R10.13 - EPIGASTRIC PAIN Status: Acute (2) Gastritis Code(s): K29.70 - GASTRITIS, UNSPECIFIED, WITHOUT BLEEDING Status: Acute (3) Nausea Code(s): R11.0 - NAUSEA Status: Acute (4) Morbid obesity with BMI of 45.0-49.9, adult Code(s): E66.01 - MORBID (SEVERE) OBESITY DUE TO EXCESS CALORIES; Z68.42 - BODY MASS INDEX (BMI) 45.0-49.9, ADULT Status: Chronic - Plan will advance diet as tolerated. will continue ppi for now. discharge once pt is able to tolerate orals. No narcotics. 04/10 pt wants to eat will advance diet. if she tolerates it will discharge her home. will start her on a low dose TCA.
[2019-04-11] MEDS ORDERED: Metoclopramide 10 MG/10 ML UDCUP PO SCH (11:30)
--- NOTE | 2019-04-12 02:15 | DIS ---
DATE OF ADMISSION: 04/04/2019 DATE OF DISCHARGE: 04/11/2019 DISCHARGE DIAGNOSES: 1. Intractable nausea and vomiting. 2. Gastritis. 3. Nausea. 4. Morbid obesity. 5. Marijuana use. HOSPITAL COURSE: The patient is a 24-year-old female, who initially presented to the hospital on 04/04 with complaints of significant nausea, vomiting, and abdominal pain. She initially was admitted to the hospital and was kept n.p.o., and was given IV hydration and some antiemetics. The patient's symptoms continued to worsen at this time. GI was consulted. She underwent EGD on 04/05, which indicated just mild gastritis at the distal esophagus and patchy areas of mucosal erythema was noted. She has had just two shallow ulcers over the gastric body with mild gastritis. At this time, the patient again continued to improve, however, continued to have significant nausea and vomiting. She was initially on narcotics. Her narcotics were discontinued and also she had a UDS, which was positive for marijuana. The patient states initially that she denies any drug use, however, later on stated that she only smoked marijuana once prior to coming into the hospital. The patient improved symptomatically with Reglan and antiemetics. She was follow through by GI and then was eventually discharged. HOME MEDICATIONS: Her home medications will be as of the following. She will continue: 1. Protonix 40 mg daily. 2. Phenergan 1-2 tablets q.6 hours p.r.n. 3. Promethazine 10 mg q.i.d. 4. Hydroxyzine 25 t.i.d. 5. I started her on amitriptyline 25 mg p.o. daily. FOLLOWUP: I did recommend her to follow up with her primary care doctor and also recommended to follow up with GI in 2-3 weeks. PHYSICAL EXAMINATION: VITAL SIGNS: The patient's vital signs on discharge were as of the following; temperature of 98.4, 100% on room air, pulse of 94, 18, and 125/85. GENERAL: She is awake, alert, and oriented x3. Does not appear in distress. CV: S1 and S2 present. No murmurs, rubs, or gallops. ABDOMEN: Soft, nontender. Bowel sounds are present x2. The patient again was discharged home. She will follow up with her primary and also with GI. I did talk to her about antidepressants and that she needs a close followup with her primary. The patient currently is not suicidal and does not feel anxious and does not feel depressed. Most likely her thoughts for her nausea, vomiting, and abdominal pain was secondary to cyclical nausea and vomiting. was negative. Her lipase was also normal. LFTs were negative including her triglycerides. Her cholesterol was also negative. Job ID: [id number]
== END 2019-04-11 12:35 | disposition home or self-care (01) | DRG 392 ==
LOC: ERS 16:37 → 2SW 18:34 → OBSVTOIN 18:34 → T4-A 04-07 17:22
PROVIDERS: ADMIT Family Medicine; ATTEND Family Medicine
PROC: 0DB98ZX Excision of Duodenum, Via Natural or Artificial Opening Endoscopic, Diagnostic (ICD-10-PCS; principal; 2019-04-05)
PROC: 0DB78ZX Excision of Stomach, Pylorus, Via Natural or Artificial Opening Endoscopic, Diagnostic (ICD-10-PCS; 2019-04-05)
PROC: 0DB38ZX Excision of Lower Esophagus, Via Natural or Artificial Opening Endoscopic, Diagnostic (ICD-10-PCS; 2019-04-05)
DX: K31.89 Other diseases of stomach and duodenum (principal); Z68.42 Body mass index [BMI] 45.0-49.9, adult; K21.9 Gastro-esophageal reflux disease without esophagitis; E87.6 Hypokalemia; K20.0 Eosinophilic esophagitis; K25.9 Gastric ulcer, unspecified as acute or chronic, without hemorrhage or perforation; K20.9 Esophagitis, unspecified; K29.70 Gastritis, unspecified, without bleeding; E66.01 Morbid (severe) obesity due to excess calories; F12.90 Cannabis use, unspecified, uncomplicated; F41.9 Anxiety disorder, unspecified; F32.9 Major depressive disorder, single episode, unspecified; R11.2 Nausea with vomiting, unspecified; Z88.1 Allergy status to other antibiotic agents; Z90.49 Acquired absence of other specified parts of digestive tract; Z79.899 Other long term (current) drug therapy
CPT/HCPCS: 36415; 74177; 80048; 80053; 80061; 80306; 81001; 83036; 83690; 84484; 84703; 85025; 88305; 88312; 88313; 93005; 96365; 96367; 96375; C9113; J0360; J2001; J2060; J2270; J2405; J2550; J2704; J2765; J2920; J3010; J3030; J3480; J7050; J8597; Q0167; Q0169; Q0177; Q9966

== ENCOUNTER 2019-06-06 17:45 | Emergency (ER) | payer BC ==
[2019-06-06] MEDS ORDERED: Promethazine HCl 25 MG/ML VIAL ONE ×2 (19:52→21:23)
[2019-06-06 21:18] LABS: #Eosinphils 0.1 thou/uL (0.0-0.7); #Lymphocytes 2.3 thou/uL (1.20-3.40); #Monocytes 1.1 thou/uL (0.11-0.59); #Neutrophils 9.6 thou/uL (1.40-6.50); %Basophils 0.2 % (0.0-1.0); %Eosinophils 0.7 % (0.0-10.0); %Lymphocytes 17.5 % (21.0-51.0); %Monocytes 8.2 % (0.0-10.0); %Neutrophils 73.4 % (42.0-75.0); Hemoglobin 14.5 g/dL (12.0-16.0); Mean Corpuscular HGB CONC 34.2 g/dL (32.0-36.0); Mean Corpuscular Volume 90.8 fL (78.0-98.0); Mean Platelet Volume 8.8 fL (7.4-10.4); Platelet Count 319 thou/uL (130-400); RBC Distribution Width 12.2 % (11.5-14.5); Red Blood Cell (RBC) Count 4.66 mill/uL (4.20-5.40); White Blood Cell (WBC) Count 13.1 thou/uL (4.8-10.8)
[2019-06-06 21:37] LABS: Bilirubin Negative (Negative); Blood, Urine Negative (Negative); Glucose, Urine (Dipstick) Normal (Negative); Leukocyte 25 Leu/uL (Negative); Nitrite Negative (Negative); Protein, Urine (Dipstick) 100 mg/dL (Neg-Trace)
[2019-06-06 21:38] LABS: Clarity Hazy (Clear)
[2019-06-06 21:41] LABS: ALT (SGPT) 20 U/L (8-55); AST (SGOT) 18 U/L (5-34); Albumin 4.7 g/dL (3.5-5.0); Alkaline Phosphatase 63 U/L (40-110); Anion Gap 15 mmol/L (10-20); BUN (Urea Nitrogen) 10 mg/dL (7.0-18.7); Calc. Creatinine Clearance 0 mL/min (70-130); Calcium 9.8 mg/dL (7.8-10.44); Carbon Dioxide 25 mmol/L (22-29); Chloride 104 mmol/L (98-107); Estimated GFR-MDRD Greater than 90; Globulin 3.2 g/dL (2.4-3.5); Glucose 97 mg/dL (70-105); Lipase Less than 4 U/L (8-78); Potassium 3.1 mmol/L (3.5-5.1); Protein, Total 7.9 g/dL (6.0-8.3); Sodium 141 mmol/L (136-145)
[2019-06-06 21:48] LABS: Bacteria/HPF 1+ HPF (None Seen); RBC/HPF 0-3 HPF (0-3)
[2019-06-06 21:49] LABS: Transitional Epithelial 0-3 HPF (None Seen)
== END 2019-06-06 22:24 | disposition home or self-care (01) ==
LOC: ERS 17:45
DX: O23.41 Unspecified infection of urinary tract in pregnancy, first trimester (principal); Z3A.01 Less than 8 weeks gestation of pregnancy
CPT/HCPCS: 36415; 80053; 81003; 81015; 83690; 84702; 85025; 96372; 99284; J2550